=== PATIENT | male | born 2000 | race Caucasian/White ===

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

== ENCOUNTER 2024-03-24 15:46 | Emergency (ER) | payer BC, SELFPAY ==
--- OUTSIDE RECORDS SUMMARY | 2024-03-24 15:49 | XMS REPORT | Continuity of Care Document ---
Author Name Unknown Address [address] [facility] 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 Role Phone Rohini Nguyen PA-C Primary Care Physician + Rohini Nguyen PA-C Attending Clinician [phone] ROHINI NGUYEN Attending Clinician Unavailab Rohini Plasencia PA-C Attending Clinician [phone] Doctor Unassigned, [place] Attending Clinician U Alisha Lopez Attending Clinician [phone] ALISHA QUEZADA Attending Clinician Unavailable CATHI LAGUNAS Attending Clinician Eliz Rosas Attending Clinician [phone] Mendy Larry MD Attending Clinician [phone] MENDY LARRY Attending Clinician Unavail able ELENA WOOTEN Attending Clinician Unavailable Sole Yanez MD Attending Clinician + [phone] Cecelia Aquino MD Attending Clinician + [phone] Payers Payer Name Policy Type Policy Number Effective Date Expirati on Date Source [facility] [id number] 2016 00:00:00 Problems Condition Name Condition Details Condition Category Status Onset Date Resolution Date Last Treatment Date Treating Clinician Comments Source Severe obesity due to excess calories without serious comorbidit y with body mass index (BMI) greater than 99th percentile for age in pediatric patient Severe obesity due to excess calories without serious comorbidit y with body mass index (BMI) greater than 99th percentile for age in pediatric patient Disease Active 06-07 00:00: 00 [facility] Severe obesity due to excess calories without serious comorbidit y with body mass index (BMI) greater than 99th percentile for age in pediatric patient Severe obesity due to excess calories without serious comorbidit y with body mass index (BMI) greater than 99th percentile for age in pediatric patient Disease Active 06-07 00:00: 00 [facility] Allergies, Adverse Reactions, Alerts Allergy Name Allergy Type Status Severity Reaction(s) Onset Date Inactive Date Treating Clinician Comments Source Latex Propensi ty to adverse reaction s Active Rash 08-18 00:00: 00 [facility] LATEX DRUG INGREDI Active Rash 08-18 00:00: 00 [facility] Social History Social Habit Start Date Stop Date Quantity Comments Source History of tobacco use Passive smoker [facility] Gender identity [facility] Sexual orientation U [facility] Exposure to SARS-CoV-2 (event) 2022-02-22 00:00:00 2022-03-04 12:44:00 Not sure [facility] History of Social function 2020-12-15 00:00:00 2020-12-15 00:00:00 [facility] Tobacco use and exposure 2017-08-18 00:00:00 2017-08-18 00:00:00 Smokeless tobacco non-user [facility] Sex assigned at 2002 00:00:00 2002 00:00:00 [facility] Smoking Status Start Date Stop Date Source Never smoked tobacco [facility] Medications Ordered Medication Name Filled Medication Name Start Date Stop Date Current Medication? Ordering Clinician Indication Dosage Frequency Signature (SIG) Comments Components Source SERTRALINE 100 mg tablet 2023-04 0 00:00: 00 Yes [id number] TAKE ONE (1) TABLET BY MOUTH EVERY MORNING. [facility] hydrOXYzine 25 mg tablet 2022-04 0-25 00:00: 00 Yes [id number] TAKE ONE (1) TO TWO (2) TABLET(S) BY MOUTH ONCE A DAY AT BEDTIME. [facility] SERTraline 100 mg tablet 2022-04 0-25 00:00: 00 02-04 00:00 :00 No [id number] 100mg Take 1 tablet by mouth every morning. [facility] SERTRALINE 100 mg tablet 9-08 00:00: 00 02-15 00:00 :00 No [id number] 100mg TAKE ONE (1) TABLET(S) BY MOUTH EVERY MORNING. [facility] hydrOXYzine 25 mg tablet 2021-04 1- 00:00: 00 02-15 00:00 :00 No [id number] TAKE ONE (1) TO TWO (2) TABLET(S) BY MOUTH ONCE A DAY AT BEDTIME. [facility] SERTraline 100 mg tablet 2021-04 1- 00:00: 00 12-30 00:00 :00 No [id number] 100mg Take 1 tablet by mouth in the morning. [facility] SERTraline 100 mg tablet 2021-04 1- 00:00: 00 03-04 00:00 :00 No [id number] 100mg Take 1 tablet by mouth in the morning. [facility] SERTraline 100 mg tablet 9-27 00:00: 00 03-03 00:00 :00 No [id number] TAKE ONE (1) TABLET BY MOUTH DAILY. [facility] hydrOXYzine 25 mg tablet 5-02 00:00: 00 03-08 00:00 :00 No [id number] TAKE ONE (1) TO TWO (2) TABLET(S) BY MOUTH AT BEDTIME. [facility] cetirizine HCl (ZYRTEC ORAL) 2020-04 0-06 11:40: 53 01-27 00:00 :00 No Take by mouth. [facility] SERTraline 100 mg tablet 2020-04 0-06 00:00: 00 Yes [id number] 100mg Take 1 tablet by mouth daily. [facility] hydrOXYzine 25 mg tablet 2020-04 0-06 00:00: 00 08-23 00:00 :00 No [id number] Take 1 to 2 tabs po qhs [facility] SERTraline 100 mg tablet 9-08 00:00: 00 01-27 00:00 :00 No [id number] 100mg Take 1 tablet by mouth daily. [facility] omeprazole 20 mg capsule 8- 13:20: 24 Yes 20mg Take 20 mg by mouth daily. [facility] MELATONIN ORAL 8- 13:20: 24 Yes Take by mouth. [facility] MELATONIN ORAL 8 13:20: 02 Yes Take by mouth. [facility] lisinopril 10 mg tablet 7- 00:00: 00 03-04 00:00 :00 No [id number] 20mg Take 2 tablets by mouth at bedtime. [facility] albuterol 90 mcg/actuati on inhaler 3-04 00:00: 00 Yes [id number] Use 2-4 puffs q 4-6hrs prn sob, cough, wheeze [facility] fluticasone propion-hector meterol 115-21 mcg/actuati on inhaler 3-04 00:00: 00 Yes [id number] 2{puff} Inhale 2 Puffs 2 (two) times daily. [facility] fluticasone propion-hector meterol 115-21 mcg/actuati on inhaler 0 3-04 00:00: 00 Yes [id number] 2{puff} Inhale 2 Puffs 2 (two) times daily. [facility] Immunizations Ordered Immunization Name Filled Immunization Name Date Status Comments Source Meningococcal Polysaccharide (groups A, C, Y and W-135) conjugate vaccine (MCV4P) 2020-12-15 00:00:00 Completed [facility] Meningococcal Polysaccharide (groups A, C, Y and W-135) conjugate vaccine (MCV4P) 2020-12-15 00:00:00 Completed [facility] Meningococcal Polysaccharide (groups A, C, Y and W-135) conjugate vaccine (MCV4P) 2020-12-15 00:00:00 Completed [facility] Meningococcal Polysaccharide (groups A, C, Y and W-135) conjugate vaccine (MCV4P) 2020-12-15 00:00:00 Completed [facility] Meningococcal Polysaccharide (groups A, C, Y and W-135) conjugate vaccine (MCV4P) 2020-12-15 00:00:00 Completed [facility] Meningococcal Polysaccharide (groups A, C, Y and W-135) conjugate vaccine (MCV4P) 2020-12-15 00:00:00 Completed [facility] Meningococcal Polysaccharide (groups A, C, Y and W-135) conjugate vaccine (MCV4P) 2020-12-15 00:00:00 Completed [facility] Meningococcal Polysaccharide (groups A, C, Y and W-135) conjugate vaccine (MCV4P) 2020-12-15 00:00:00 Completed [facility] Meningococcal Polysaccharide (groups A, C, Y and W-135) conjugate vaccine (MCV4P) 2020-12-15 00:00:00 Completed [facility] HEPATITIS A 2014-07-21 00:00:00 Completed [facility] TDAP 2014-07-21 00:00:00 Completed [facility] HEPATITIS A 2014-07-21 00:00:00 Completed [facility] TDAP 2014-07-21 00:00:00 Completed [facility] HEPATITIS A 2014-07-21 00:00:00 Completed [facility] TDAP 2014-07-21 00:00:00 Completed [facility] HEPATITIS A 2014-07-21 00:00:00 Completed [facility] TDAP 2014-07-21 00:00:00 Completed [facility] HEPATITIS A 2014-07-21 00:00:00 Completed [facility] TDAP 2014-07-21 00:00:00 Completed [facility] HEPATITIS A 2014-07-21 00:00:00 Completed [facility] TDAP 2014-07-21 00:00:00 Completed [facility] HEPATITIS A 2014-07-21 00:00:00 Completed [facility] TDAP 2014-07-21 00:00:00 Completed [facility] HEPATITIS A 2014-07-21 00:00:00 Completed [facility] TDAP 2014-07-21 00:00:00 Completed [facility] HEPATITIS A 2014-07-21 00:00:00 Completed [facility] TDAP 2014-07-21 00:00:00 Completed [facility] HEPATITIS A 2007-01-15 00:00:00 Completed [facility] MMR 2007-01-15 00:00:00 Completed [facility] Polio (IPV/OPV) 2007-01-15 00:00:00 Completed [facility] Varicella (varivax)(chicken pox) 2007-01-15 00:00:00 Completed [facility] DTAP 2007-01-15 00:00:00 Completed [facility] HEPATITIS A 2007-01-15 00:00:00 Completed [facility] MMR 2007-01-15 00:00:00 Completed [facility] Polio (IPV/OPV) 2007-01-15 00:00:00 Completed [facility] Varicella (varivax)(chicken pox) 2007-01-15 00:00:00 Completed [facility] DTAP 2007-01-15 00:00:00 Completed [facility] HEPATITIS A 2007-01-15 00:00:00 Completed [facility] MMR 2007-01-15 00:00:00 Completed [facility] Polio (IPV/OPV) 2007-01-15 00:00:00 Completed [facility] Varicella (varivax)(chicken pox) 2007-01-15 00:00:00 Completed [facility] DTAP 2007-01-15 00:00:00 Completed [facility] HEPATITIS A 2007-01-15 00:00:00 Completed [facility] MMR 2007-01-15 00:00:00 Completed [facility] Polio (IPV/OPV) 2007-01-15 00:00:00 Completed [facility] Varicella (varivax)(chicken pox) 2007-01-15 00:00:00 Completed [facility] DTAP 2007-01-15 00:00:00 Completed [facility] HEPATITIS A 2007-01-15 00:00:00 Completed [facility] MMR 2007-01-15 00:00:00 Completed [facility] Polio (IPV/OPV) 2007-01-15 00:00:00 Completed [facility] Varicella (varivax)(chicken pox) 2007-01-15 00:00:00 Completed [facility] DTAP 2007-01-15 00:00:00 Completed [facility] HEPATITIS A 2007-01-15 00:00:00 Completed [facility] MMR 2007-01-15 00:00:00 Completed [facility] Polio (IPV/OPV) 2007-01-15 00:00:00 Completed [facility] Varicella (varivax)(chicken pox) 2007-01-15 00:00:00 Completed [facility] DTAP 2007-01-15 00:00:00 Completed [facility] HEPATITIS A 2007-01-15 00:00:00 Completed [facility] MMR 2007-01-15 00:00:00 Completed [facility] Polio (IPV/OPV) 2007-01-15 00:00:00 Completed [facility] Varicella (varivax)(chicken pox) 2007-01-15 00:00:00 Completed [facility] DTAP 2007-01-15 00:00:00 Completed [facility] HEPATITIS A 2007-01-15 00:00:00 Completed [facility] MMR 2007-01-15 00:00:00 Completed [facility] Polio (IPV/OPV) 2007-01-15 00:00:00 Completed [facility] Varicella (varivax)(chicken pox) 2007-01-15 00:00:00 Completed [facility] DTAP 2007-01-15 00:00:00 Completed [facility] HEPATITIS A 2007-01-15 00:00:00 Completed [facility] MMR 2007-01-15 00:00:00 Completed [facility] Polio (IPV/OPV) 2007-01-15 00:00:00 Completed [facility] Varicella (varivax)(chicken pox) 2007-01-15 00:00:00 Completed [facility] DTAP 2007-01-15 00:00:00 Completed [facility] DTAP 2003-08-04 00:00:00 Completed [facility] MMR 2003-08-04 00:00:00 Completed [facility] Varicella (varivax)(chicken pox) 2003-08-04 00:00:00 Completed [facility] HIB 3 Dose Schedule 2003-08-04 00:00:00 Completed [facility] DTAP 2003-08-04 00:00:00 Completed [facility] MMR 2003-08-04 00:00:00 Completed [facility] Varicella (varivax)(chicken pox) 2003-08-04 00:00:00 Completed [facility] HIB 3 Dose Schedule 2003-08-04 00:00:00 Completed [facility] DTAP 2003-08-04 00:00:00 Completed [facility] MMR 2003-08-04 00:00:00 Completed [facility] Varicella (varivax)(chicken pox) 2003-08-04 00:00:00 Completed [facility] HIB 3 Dose Schedule 2003-08-04 00:00:00 Completed [facility] DTAP 2003-08-04 00:00:00 Completed [facility] MMR 2003-08-04 00:00:00 Completed [facility] Varicella (varivax)(chicken pox) 2003-08-04 00:00:00 Completed [facility] HIB 3 Dose Schedule 2003-08-04 00:00:00 Completed [facility] DTAP 2003-08-04 00:00:00 Completed [facility] MMR 2003-08-04 00:00:00 Completed [facility] Varicella (varivax)(chicken pox) 2003-08-04 00:00:00 Completed [facility] HIB 3 Dose Schedule 2003-08-04 00:00:00 Completed [facility] DTAP 2003-08-04 00:00:00 Completed [facility] MMR 2003-08-04 00:00:00 Completed [facility] Varicella (varivax)(chicken pox) 2003-08-04 00:00:00 Completed [facility] HIB 3 Dose Schedule 2003-08-04 00:00:00 Completed [facility] DTAP 2003-08-04 00:00:00 Completed [facility] MMR 2003-08-04 00:00:00 Completed [facility] Varicella (varivax)(chicken pox) 2003-08-04 00:00:00 Completed [facility] HIB 3 Dose Schedule 2003-08-04 00:00:00 Completed [facility] DTAP 2003-08-04 00:00:00 Completed [facility] MMR 2003-08-04 00:00:00 Completed [facility] Varicella (varivax)(chicken pox) 2003-08-04 00:00:00 Completed [facility] HIB 3 Dose Schedule 2003-08-04 00:00:00 Completed [facility] DTAP 2003-08-04 00:00:00 Completed [facility] MMR 2003-08-04 00:00:00 Completed [facility] Varicella (varivax)(chicken pox) 2003-08-04 00:00:00 Completed [facility] HIB 3 Dose Schedule 2003-08-04 00:00:00 Completed Polio (IPV/OPV) 2003-05-30 00:00:00 Completed [facility] Varicella (varivax)(chicken pox) 2003-05-30 00:00:00 Completed [facility] Polio (IPV/OPV) 2003-05-30 00:00:00 Completed [facility] Varicella (varivax)(chicken pox) 2003-05-30 00:00:00 Completed [facility] Polio (IPV/OPV) 2003-05-30 00:00:00 Completed [facility] Varicella (varivax)(chicken pox) 2003-05-30 00:00:00 Completed [facility] Polio (IPV/OPV) 2003-05-30 00:00:00 Completed [facility] Varicella (varivax)(chicken pox) 2003-05-30 00:00:00 Completed [facility] Polio (IPV/OPV) 2003-05-30 00:00:00 Completed [facility] Varicella (varivax)(chicken pox) 2003-05-30 00:00:00 Completed [facility] Polio (IPV/OPV) 2003-05-30 00:00:00 Completed [facility] Varicella (varivax)(chicken pox) 2003-05-30 00:00:00 Completed [facility] Polio (IPV/OPV) 2003-05-30 00:00:00 Completed [facility] Varicella (varivax)(chicken pox) 2003-05-30 00:00:00 Completed [facility] Polio (IPV/OPV) 2003-05-30 00:00:00 Completed [facility] Varicella (varivax)(chicken pox) 2003-05-30 00:00:00 Completed [facility] Polio (IPV/OPV) 2003-05-30 00:00:00 Completed [facility] Varicella (varivax)(chicken pox) 2003-05-30 00:00:00 Completed [facility] Hep B, Adol or Pedi Dosage 2002 00:00:00 Completed [facility] Hep B, Adol or Pedi Dosage 2002 00:00:00 Completed [facility] Hep B, Adol or Pedi Dosage 2002 00:00:00 Completed [facility] Hep B, Adol or Pedi Dosage 2002 00:00:00 Completed [facility] Hep B, Adol or Pedi Dosage 2002 00:00:00 Completed [facility] Hep B, Adol or Pedi Dosage 2002 00:00:00 Completed [facility] Hep B, Adol or Pedi Dosage 2002 00:00:00 Completed [facility] Hep B, Adol or Pedi Dosage 2002 00:00:00 Completed [facility] Hep B, Adol or Pedi Dosage 2002 00:00:00 Completed [facility] HIB 3 Dose Schedule 2002 00:00:00 Completed [facility] HIB 3 Dose Schedule 2002 00:00:00 Completed [facility] HIB 3 Dose Schedule 2002 00:00:00 Completed [facility] HIB 3 Dose Schedule 2002 00:00:00 Completed [facility] HIB 3 Dose Schedule 2002 00:00:00 Completed [facility] HIB 3 Dose Schedule 2002 00:00:00 Completed [facility] HIB 3 Dose Schedule 2002 00:00:00 Completed [facility] HIB 3 Dose Schedule 2002 00:00:00 Completed [facility] HIB 3 Dose Schedule 2002 00:00:00 Completed [facility] HIB 3 Dose Schedule 2002 00:00:00 Completed [facility] Polio (IPV/OPV) 2002 00:00:00 Completed [facility] DTAP 2002 00:00:00 Completed [facility] HIB 3 Dose Schedule 2002 00:00:00 Completed [facility] Polio (IPV/OPV) 2002 00:00:00 Completed [facility] DTAP 2002 00:00:00 Completed [facility] HIB 3 Dose Schedule 2002 00:00:00 Completed [facility] Polio (IPV/OPV) 2002 00:00:00 Completed [facility] DTAP 2002 00:00:00 Completed [facility] HIB 3 Dose Schedule 2002 00:00:00 Completed [facility] Polio (IPV/OPV) 2002 00:00:00 Completed [facility] DTAP 2002 00:00:00 Completed [facility] HIB 3 Dose Schedule 2002 00:00:00 Completed [facility] Polio (IPV/OPV) 2002 00:00:00 Completed [facility] DTAP 2002 00:00:00 Completed [facility] HIB 3 Dose Schedule 2002 00:00:00 Completed [facility] Polio (IPV/OPV) 2002 00:00:00 Completed [facility] DTAP 2002 00:00:00 Completed [facility] HIB 3 Dose Schedule 2002 00:00:00 Completed [facility] Polio (IPV/OPV) 2002 00:00:00 Completed [facility] DTAP 2002 00:00:00 Completed [facility] HIB 3 Dose Schedule 2002 00:00:00 Completed [facility] Polio (IPV/OPV) 2002 00:00:00 Completed [facility] DTAP 2002 00:00:00 Completed [facility] HIB 3 Dose Schedule 2002 00:00:00 Completed [facility] Polio (IPV/OPV) 2002 00:00:00 Completed [facility] DTAP 2002 00:00:00 Completed [facility] HIB 3 Dose Schedule 2002 00:00:00 Completed [facility] Hep B, Adol or Pedi Dosage 2002 00:00:00 Completed [facility] Polio (IPV/OPV) 2002 00:00:00 Completed [facility] DTAP 2002 00:00:00 Completed [facility] HIB 3 Dose Schedule 2002 00:00:00 Completed [facility] Hep B, Adol or Pedi Dosage 2002 00:00:00 Completed [facility] Polio (IPV/OPV) 2002 00:00:00 Completed [facility] DTAP 2002 00:00:00 Completed [facility] HIB 3 Dose Schedule 2002 00:00:00 Completed [facility] Hep B, Adol or Pedi Dosage 2002 00:00:00 Completed [facility] Polio (IPV/OPV) 2002 00:00:00 Completed [facility] DTAP 2002 00:00:00 Completed [facility] HIB 3 Dose Schedule 2002 00:00:00 Completed [facility] Hep B, Adol or Pedi Dosage 2002 00:00:00 Completed [facility] Polio (IPV/OPV) 2002 00:00:00 Completed [facility] DTAP 2002 00:00:00 Completed [facility] HIB 3 Dose Schedule 2002 00:00:00 Completed [facility] Hep B, Adol or Pedi Dosage 2002 00:00:00 Completed [facility] Polio (IPV/OPV) 2002 00:00:00 Completed [facility] DTAP 2002 00:00:00 Completed [facility] HIB 3 Dose Schedule 2002 00:00:00 Completed [facility] Hep B, Adol or Pedi Dosage 2002 00:00:00 Completed [facility] Polio (IPV/OPV) 2002 00:00:00 Completed [facility] DTAP 2002 00:00:00 Completed [facility] HIB 3 Dose Schedule 2002 00:00:00 Completed [facility] Hep B, Adol or Pedi Dosage 2002 00:00:00 Completed [facility] Polio (IPV/OPV) 2002 00:00:00 Completed [facility] DTAP 2002 00:00:00 Completed [facility] HIB 3 Dose Schedule 2002 00:00:00 Completed [facility] Hep B, Adol or Pedi Dosage 2002 00:00:00 Completed [facility] Polio (IPV/OPV) 2002 00:00:00 Completed [facility] DTAP 2002 00:00:00 Completed [facility] HIB 3 Dose Schedule 2002 00:00:00 Completed [facility] Hep B, Adol or Pedi Dosage 2002 00:00:00 Completed [facility] Polio (IPV/OPV) 2002 00:00:00 Completed [facility] DTAP 2002 00:00:00 Completed [facility] DTAP 2002 00:00:00 Completed [facility] DTAP 2002 00:00:00 Completed [facility] DTAP 2002 00:00:00 Completed [facility] DTAP 2002 00:00:00 Completed [facility] DTAP 2002 00:00:00 Completed [facility] DTAP 2002 00:00:00 Completed [facility] DTAP 2002 00:00:00 Completed [facility] DTAP 2002 00:00:00 Completed [facility] DTAP 2002 00:00:00 Completed [facility] Hep B, Adol or Pedi Dosage 2002 00:00:00 Completed [facility] Hep B, Adol or Pedi Dosage 2002 00:00:00 Completed [facility] Hep B, Adol or Pedi Dosage 2002 00:00:00 Completed [facility] Hep B, Adol or Pedi Dosage 2002 00:00:00 Completed [facility] Hep B, Adol or Pedi Dosage 2002 00:00:00 Completed [facility] Hep B, Adol or Pedi Dosage 2002 00:00:00 Completed [facility] Hep B, Adol or Pedi Dosage 2002 00:00:00 Completed [facility] Hep B, Adol or Pedi Dosage 2002 00:00:00 Completed [facility] Hep B, Adol or Pedi Dosage 2002 00:00:00 Completed DTAP Unknown Completed [facility] HIB 3 Dose Schedule Unknown Completed [facility] Hep B, Adol or Pedi Dosage Unknown Completed [facility] MMR Unknown Completed [facility] Varicella (varivax)(chicken pox) Unknown Completed [facility] HEPATITIS A Unknown Completed [facility] Polio (IPV/OPV) Unknown Completed [facility] TDAP Unknown Completed [facility] Meningococcal Polysaccharide (groups A, C, Y and W-135) conjugate vaccine (MCV4P) Unknown Completed [facility] DTAP Unknown Completed [facility] HIB 3 Dose Schedule Unknown Completed [facility] Hep B, Adol or Pedi Dosage Unknown Completed [facility] MMR Unknown Completed [facility] Varicella (varivax)(chicken pox) Unknown Completed [facility] HEPATITIS A Unknown Completed [facility] Polio (IPV/OPV) Unknown Completed [facility] TDAP Unknown Completed [facility] Meningococcal Polysaccharide (groups A, C, Y and W-135) conjugate vaccine (MCV4P) Unknown Completed [facility] DTAP Unknown Completed [facility] HIB 3 Dose Schedule Unknown Completed [facility] Hep B, Adol or Pedi Dosage Unknown Completed [facility] MMR Unknown Completed [facility] Varicella (varivax)(chicken pox) Unknown Completed [facility] HEPATITIS A Unknown Completed [facility] Polio (IPV/OPV) Unknown Completed [facility] TDAP Unknown Completed [facility] Meningococcal Polysaccharide (groups A, C, Y and W-135) conjugate vaccine (MCV4P) Unknown Completed [facility] DTAP Unknown Completed [facility] HIB 3 Dose Schedule Unknown Completed [facility] Hep B, Adol or Pedi Dosage Unknown Completed [facility] MMR Unknown Completed [facility] Varicella (varivax)(chicken pox) Unknown Completed [facility] HEPATITIS A Unknown Completed [facility] Polio (IPV/OPV) Unknown Completed [facility] TDAP Unknown Completed [facility] Meningococcal Polysaccharide (groups A, C, Y and W-135) conjugate vaccine (MCV4P) Unknown Completed [facility] Vital Signs Vital Name Observation Time Observation Value Comments S ource Systolic blood pressure 2023-02-15 18:36:00 143 mm[Hg] [facility] Diastolic blood pressure 2023-02-15 18:36:00 94 mm[Hg] [facility] Heart rate 2023-02-15 18:36:00 85 /min [facility] Respiratory rate 2023-02-15 18:36:00 15 /min [facility] Body weight 2023-02-15 18:36:00 151.643 kg [facility] Systolic blood pressure 2022-03-04 19:01:00 128 mm[Hg] [facility] Diastolic blood pressure 2022-03-04 19:01:00 76 mm[Hg] [facility] Heart rate 2022-03-04 19:01:00 94 /min Un[facility] Respiratory rate 2022-03-04 19:01:00 16 /min [facility] Body height 2022-03-04 19:01:00 179.5 cm [facility] Body weight 2022-03-04 19:01:00 148.734 kg [facility] BMI 2022-03-04 19:01:00 46.16 kg/m2 [facility] Oxygen saturation in Arterial blood by Pulse oximetry 2022-03-04 19:01:00 96 /min [facility] Systolic blood pressure 2021-01-27 16:08:00 114 mm[Hg] [facility] Diastolic blood pressure 2021-01-27 16:08:00 76 mm[Hg] [facility] Heart rate 2021-01-27 16:08:00 85 /min Unive [facility] Body temperature 2021-01-27 16:08:00 36.5 Radha [facility] Respiratory rate 2021-01-27 16:08:00 16 /min [facility] Body weight 2021-01-27 16:08:00 161.14 kg [facility] Oxygen saturation in Arterial blood by Pulse oximetry 2021-01-27 16:08:00 96 /min [facility] Procedures Procedure Date / Time Performed Performing Clinicia n Source [facility] PATIENT FINANCIAL POLICY 2023-02-15 18:28:36 Doctor Unassigned, [place] [facility] CONSENT/REFUSAL FOR DIAGNOSIS AND TREATMENT 2022-03-04 18:46:40 Doctor Unassigned, [place] [facility] Encounters Start Date/Time End Date/Time Encounter Type Admission Type Attending Clinicians Care Facility Care Department Encounter ID Source 2021-02-19 05:02:35 Emergency [facility] [id number] [facility] 2024-03-08 00:00:00 2024-03-08 11:16:23 Rohini Wilson [facility] 1.2840.114 350.1.13.10 4.2.7.2.686 [id number] 225 [id number] [facility] 2024-02-19 15:50:00 2024-02-19 15:50:00 Outpatient ROHINI ARTHUR [facility] [id number] [facility] 2024-02-05 00:00:00 2024-02-05 10:02:10 RefRohini Musa [facility] 1.2.840.114 350.1.13.10 4.2.7.2.686 [id number] 225 [id number] [facility] 2023-08-18 09:30:00 2023-08-18 09:30:00 Outpatient ROHINI ARTHUR [facility] [id number] [facility] 2023-02-15 13:30:00 2023-02-15 14:10:00 Office Visit Rohini Nguyen [facility] 1.2840.114 350.1.13.10 4.2.7.2.686 [id number] 225 [id number] [facility] 2023-02-15 13:30:00 2023-02-15 14:10:00 Outpatient ROHINI ARTHUR [facility] [id number] [facility] 2023-02-15 00:00:00 2023-02-15 00:00:00 Orders Only Doctor Unassigned, [place] [facility] 1.2840.114 350.1.13.10 4.2.7.2.686 [id number] [id number] [facility] 2023-02-13 00:00:00 2023-02-13 00:00:00 Rohini Wilson [facility] 1.2840.114 350.1.13.10 4.2.7.2.686 [id number] [facility] 2023-01-30 00:00:00 2023-01-30 00:00:00 Rohini Wilson [facility] 1.0.114 350.1.13.10 4.2.7.2.686 [id number] [facility] 2022-12-29 00:00:00 2022-12-29 00:00:00 Rohini Wilson [facility] 1.0.114 350.1.13.10 4.2.7.2.686 [id number] [facility] 2022-09-02 13:50:00 2022-09-02 13:50:00 Outpatient ROHINI ARTHUR [facility] [id number] [facility] 2022-03-08 00:00:00 2022-03-08 00:00:00 Rohini Wilson [facility] 1.0.114 350.1.13.10 4.2.7.2.686 [id number] 225 [id number] [facility] 2022-03-04 12:50:00 2022-03-04 13:46:16 Outpatient ROHINI ARTHUR [facility] [id number] [facility] 2022-03-04 12:50:00 2022-03-04 13:46:16 Office Visit Rohini Nguyen [facility] 1..114 350.1.13.10 4.2.7.2.686 [id number] [facility] 2022-03-04 00:00:00 2022-03-04 00:00:00 Orders Only Doctor Unassigned, [place] [facility] 1.2840.114 350.1.13.10 4.2.7.2.686 [id number] [id number] [facility] 2022-03-02 00:00:2022-03-02 00:00:00 Refill Rohini Nguyen [facility] 1.2.840.114 350.1.13.10 4.2.7.2.686 [id number] 225 [id number] [facility] 2022-02-24 00:00:00 2022-02-24 00:00:00 Refill Rohini Nguyen [facility] 1.2.840.114 350.1.13.10 4.2.7.2.686 [id number] [facility] 2021-08-23 00:00:00 2021-08-23 00:00:00 Rohini Wilson [facility] 1.2.840.114 350.1.13.10 4.2.7.2.686 [id number] [facility] 2021-01-27 11:00:56 2021-01-27 11:45:19 Office Visit Rohini Nguyen [facility] 1.2.840.114 350.1.13.10 4.2.7.2.686 [id number] [facility] 2021-01-27 11:10:00 2021-01-27 11:10:00 Outpatient R ROHINI NGUYEN [facility] [id number] [facility] 2021-01-26 00:00:00 2021-01-26 00:00:00 RefRohini Musa [facility] 1.2.840.114 350.1.13.10 4.2.7.2.686 [id number] 225 [id number] [facility] 2021-01-19 13:50:00 2021-01-19 13:50:00 Outpatient R ROHINI NGUYEN [facility] [id number] [facility] 2020-12-29 00:00:00 2020-12-29 00:00:00 Rohini Wilson [facility] 1.2.114 350.1.13.10 4.2.7.2.686 [id number] 225 [id number] [facility] 2020-12-29 00:00:00 2020-12-29 00:00:00 Rohini Wilson [facility] 1.20.114 350.1.13.10 4.2.7.2.686 [id number] 225 [id number] [facility] 2020-12-15 13:06:50 2020-12-15 14:29:14 Office Visit Alisha Quezada [facility] Tomas?[facility] 1.2840.114 350.1.13.10 4.2.7.2.686 [id number] [facility] 2020-12-15 13:00:00 2020-12-15 13:00:00 Outpatient R ALISHA QUEZADA [facility] [id number] [facility] 2020-12-15 00:00:00 2020-12-15 00:00:00 Orders Only Doctor Unassigned, [place] [facility] 1.2840.114 350.1.13.10 4.2.7.2.686 [id number] [id number] [facility] 2020-12-15 00:00:00 2020-12-15 00:00:00 Orders Only Doctor Unassigned, [place] [facility] 1.2840.114 350.1.13.10 4.2.7.2.686 [id number] [facility] 2020-12-07 08:50:00 2020-12-07 08:50:00 Outpatient R ROHINI NGUYEN [facility] [id number] [facility] 2020-06-30 12:42:48 2020-06-30 13:02:48 Telemedici ne Visit Rohini Nguyen [facility] 1.2.840.114 350.1.13.10 4.2.7.2.686 [id number] [facility] 2020-06-30 12:30:00 2020-06-30 12:30:00 Outpatient ROHINI ARTHUR [facility] [id number] [facility] 2020-06-24 00:00:00 2020-06-24 00:00:00 Refill Rohini Nguyen [facility] 1.2.840.114 350.1.13.10 4.2.7.2.686 [id number] [facility] 2020-05-01 00:00:00 2020-05-01 00:00:00 Telephone Rohini Nguyen [facility] 1.2.840.114 350.1.13.10 4.2.7.2.686 [id number] 225 [id number] [facility] 2020 00:00:00 2020 00:00:00 Rohini Wilson [facility] 1.2.840.114 350.1.13.10 4.2.7.2.686 [id number] 225 [id number] [facility] 2020-02-20 00:00:00 2020-02-20 00:00:00 RefRohini Musa [facility] 1.2.840.114 350.1.13.10 4.2.7.2.686 [id number] [facility] 2020-01-03 15:30:00 2020-01-03 15:30:00 Outpatient ROHINI ARTHUR [facility] [id number] [facility] 2020-01-03 00:00:00 2020-01-03 00:00:00 Telephone Rohini Nguyen [facility] 1.2.840.114 350.1.13.10 4.2.7.2.686 [id number] [facility] 2019-12-27 00:00:00 2019-12-27 00:00:00 Ritu Rohini Nguyen [facility] 1.2.840.114 350.1.13.10 4.2.7.2.686 [id number] [facility] 2019-11-22 00:00:00 2019-11-22 00:00:00 Orders Only Doctor Unassigned, [place] [facility] 1.2.840.114 350.1.13.10 4.2.7.2.686 [id number] [facility] 2019-11-04 11:00:00 2019-11-04 11:00:00 Outpatient CATHI MONTANO [facility] [id number] [facility] 2019-10-28 16:23:58 2019-10-28 19:00:00 Emergency Eliz Baht [facility] 1.2.840.114 350.1.13.10 4.2.7.2.686 [id number] [facility] 2019-10-28 14:16:21 2019-10-28 15:14:20 Office Visit Mendy Larry [facility] 1.2.840.114 350.1.13.10 4.2.7.2.686 [id number] [facility] 2019-10-28 14:20:00 2019-10-28 14:20:00 Outpatient MENDY MORSE [facility] [id number] [facility] 2019-10-28 00:00:00 2019-10-28 00:00:00 Orders Only Doctor Unassigned, [place] [facility] 1.2.840.114 350.1.13.10 4.2.7.2.686 [id number] [facility] 2019-09-29 00:00:00 2019-09-29 00:00:00 Refill Rohini Nguyen [facility] 1.2.840.114 350.1.13.10 4.2.7.2.686 [id number] [facility] 2019-09-23 15:50:00 2019-09-23 15:50:00 Outpatient R ROHINI NGUYEN [facility] [id number] [facility] 2019-09-20 14:40:00 2019-09-20 14:40:00 Outpatient R ELENA WOOTEN [facility] [id number] [facility] 2019-09-20 00:00:00 2019-09-20 00:00:00 Telephone Rohini Nguyen [facility] 1.2.840.114 350.1.13.10 4.2.7.2.686 [id number] [facility] 2019-09-17 00:00:00 2019-09-17 00:00:00 Telephone Rohini Nguyen [facility] 1.2.840.114 350.1.13.10 4.2.7.2.686 [id number] [facility] 2019-09-17 00:00:00 2019-09-17 00:00:00 Telephone Rohini Nguyen [facility] 1.2.840.114 350.1.13.10 4.2.7.2.686 [id number] [facility] 2019-06-26 13:37:33 2019-06-26 14:17:11 Office Visit Rohini Nguyen [facility] 1.2.840.114 350.1.13.10 4.2.7.2.686 [id number] [facility] 2019-06-26 13:30:00 2019-06-26 13:30:00 Outpatient R ROHINI NGUYEN [facility] [id number] [facility] 2019-06-26 00:00:00 2019-06-26 00:00:00 Letter (Out) Rohini Nguyen [facility] 1.2.840.114 350.1.13.10 4.2.7.2.686 [id number] [facility] 2019-06-06 07:44:23 2019-06-06 09:09:08 [facility] 1.2.840.114 350.1.13.10 4.2.7.2.686 [id number] [facility] 2019-05-22 07:38:27 2019-05-22 09:06:57 Office Visit Rohini Nguyen [facility] 1.2.840.114 350.1.13.10 4.2.7.2.686 [id number] [facility] 2019-05-22 00:00:00 2019-05-22 00:00:00 Orders Only Doctor Unassigned, [place] [facility] 1.2.840.114 350.1.13.10 4.2.7.2.686 [id number] [facility] 2019-05-22 00:00:00 2019-05-22 00:00:00 Letter (Out) Rohini Nguyen [facility] 1.2.840.114 350.1.13.10 4.2.7.2.686 [id number] [facility] 2018-12-31 15:27:12 2018-12-31 16:18:55 Office Visit Cecelia Johnson [facility] 1.2.840.114 350.1.13.10 4.2.7.2.686 [id number] [facility] 2018-12-28 00:00:00 2018-12-28 00:00:00 Telephone Rohini Nguyen [facility] 1.2.840.114 350.1.13.10 4.2.7.2.686 [id number] [facility] 2018-12-19 14:19:37 2018-12-19 15:48:41 Office Visit Rohini Nguyen [facility] 1.2.840.114 350.1.13.10 4.2.7.2.686 [id number] [facility] 2018-12-19 00:00:00 2018-12-19 00:00:00 Letter (Out) Rohini Nguyen [facility] 1.2.840.114 350.1.13.10 4.2.7.2.686 [id number] 225 [id number] [facility] 2018-12-17 00:00:00 2018-12-17 00:00:00 Telephone Rohini Nguyen [facility] 1.2.840.114 350.1.13.10 4.2.7.2.686 [id number] [facility] 2018-11-20 10:20:00 2018-11-20 10:55:11 Office Visit Rohini Nguyen [facility] 1.2.840.114 350.1.13.10 4.2.7.2.686 [id number] 225 [id number] [facility] 2018-11-20 00:00:00 2018-11-20 00:00:00 Orders Only Doctor Unassigned, [place] [facility] 1.2.840.114 350.1.13.10 4.2.7.2.686 [id number] [facility] 2018-11-10 00:00:00 2018-11-10 00:00:00 Refill Rohini Nguyen [facility] 1.2.840.114 350.1.13.10 4.2.7.2.686 [id number] 225 [id number] [facility] Notes Date/Time Note Provider Source 2024-03-08 11:15:54 Attempted to call patient, left VM patient needs appt for refill. [facility] Sarai Villegas MA [facility] 2024-03-08 10:52:11 Call pt, Needs appt. Can be nurse visit with provider ( only Rohini Adan) check in on that day if unable to afford visit. Please advise if Seema has concerns./acp [facility] 2024-03-08 09:34:59 NELLIE 02/15/2023 L[facility] 02/05/2024 Appt due 08/17/2023 [facility] 2024-02-05 10:01:53 LVM for MOC that appt will be needed for any further refills. Callback number provided. Caprice aHrt RN [facility] 2024-02-05 09:48:25 Call pt/moc 1 month supply sent to pharmacy. Needs appt for subsequent fills. [facility] 2024-02-05 08:44:23 Images from the original note were not included. Name from pharmacy: Sertraline 100mg Tablet Will file in chart as: SERTRALINE 100 mg tablet Sig: TAKE ONE (1) TABLET BY MOUTH EVERY MORNING. Disp: 90 tablet (Pharmacy requested: 90 Each) Refills: 3 (Pharmacy requested: Not specified) Start: 02/05/2024 Class: eRX For: Current mild episode of major depressive disorder without prior episode Last ordered: 11 months ago (02/15/2023) by Rohini Nguyen PA-C Last refill: 11/09/2023 Rx #: [id number] Psychiatry: Antidepressants [id number]/05/2024 05:51 AM Protocol Details Valid encounter within last 6 months Manual Review: Staff with the department of Endocrinology - Forward to provider for authorization Manual Review: Verify no changes in dose in the last 3 months To be filled at: [address] AT [place] [address] 02/15/2023 Sarai Villegas MA [facility] 2022-12-30 08:51:07 Formatting of this n ote might be different from the original. Left message for MOC to confirm if pt still taking and explained needing to taking medication continuously and not stopping abruptly. Caprice Hart RN [facility] 2022-12-30 08:45:44 Formatting of this n ote might be different from the original. Please call moc and clarify that this refill is needed. He is due for a medication recheck. 30 days given but if he is still taking this medication then he will need an appt for additional refills.//acp [facility] 2022-12-29 09:36:57 Formatting of this n ote is different from the original. Images from the original note were not included. Name from pharmacy: Sertraline 100mg Tablet Will file in chart as: SERTRALINE 100 mg tablet Sig: TAKE ONE (1) TABLET(S) BY MOUTH EVERY MORNING. Disp: 90 tablet (Pharmacy requested: 90 Each) Refills: 2 (Pharmacy requested: Not specified) Start: 12/29/2022 Class: eRX For: Current mild episode of major depressive disorder without prior episode To pharmacy: Sending [facility] refill request Last ordered: 10 months ago (03/04/2022) by Rohini Nguyen PA-C Last refill: 09/29/2022 Rx #: [id number] Psychiatry: Antidepressants Failed 12/29/2022 05:54 AM Protocol Details Valid encounter within last 6 months Manual Review: Staff with the department of Endocrinology - Forward to provider for authorization Manual Review: Verify no changes in dose in the last 3 months To be filled at: [facility] [place] [facility] [place], [place] - [address] AT [place] [address] [facility]-- 03.04.22 Last filled-- 03.04.22 T [facility]
[2024-03-24 16:49] LABS: Absolute Basophils 0.1 K/uL (0-0.5); Absolute Lymphocytes (CBC) 0.4 K/uL (0.7-4.9); Absolute Monocytes 1.3 K/uL (0.1-1.3); Absolute Neutrophil 23.3 K/uL (1.8-8.0); Basophils % 0.3 % (0-1.3); Eosinophils % 0.1 % (0-4.4); Hematocrit 45.3 % (39.6-49.0); Hemoglobin 15.4 g/dL (13.6-17.9); Lymphocytes % 1.5 % (15.3-44.8); MCH 30.3 pg (27.0-35.0); MCHC 33.9 g/dL (32.0-36.0); MCV 89.4 fL (80-100); MPV 8.4 fL (7.6-11.3); Monocytes % 5.3 % (3.3-12.3); Neutrophils % 92.8 % (41.7-73.7); Platelets 380 thou/uL (152-406); RBC Red Blood Cell Count 5.07 M/uL (4.33-5.43); Red Cell Distribution Width 12.9 % (12.1-15.2)
[2024-03-24 17:03] LABS: Band Neutrophils 1 % (0-1); Differential Total Cells Count 100; Lymphocytes 2 % (15-42); Monocytes 8 % (0-10); Segmented Neutrophils 88 % (40-80)
--- NOTE | 2024-03-24 17:03 | RAD REPORT ---
EXAMINATION: ONE VIEW CHEST XR CLINICAL INDICATION: syncope TECHNIQUE: Frontal chest projection is submitted. Examination is limited by patient positioning and t echnique. COMPARISON: No prior exam. FINDINGS: The lungs are well inflated and clear. The heart is normal in size. No displaced fractures identified . IMPRESSION: No acute intrathoracic abnormalities.
[2024-03-24 17:04] LABS: Blood Morphology Comment NOT SEEN (NOT SEEN); Eosinophils 1 % (0-3); Platelet Estimate ADEQ
[2024-03-24 17:25] LABS: Albumin/Globulin Ratio 1.1 (1.1-1.8); Anion Gap 9.5 mEq/L (5.0-15.0); Bilirubin Direct 0.2 mg/dL (0-0.2); Bilirubin Indirect, Calculated 0.7 mg/dL (0.2-0.8); Bilirubin Total 0.9 mg/dL (0.2-1.0); Globulin 3.5 g/dL (2.3-3.5); Magnesium 1.6 mg/dL (1.6-2.4); Potassium 3.5 mEq/L (3.5-5.1); Protein, Total 7.5 g/dL (6.4-8.2); Troponin High Sensitivity 15.1 pg/mL (<58.9)
[2024-03-24] MEDS ORDERED: NA CHLORIDE 0.9% 1,000 ML ONE ×2 (17:31→18:32)
[2024-03-24] MEDS ORDERED: FAMOTIDINE 20 MG/2 ML VIAL IV ONE (17:31)
[2024-03-24] MEDS ORDERED: ONDANSETRON 4 MG/2 ML VIAL ONE (17:31)
--- NOTE | 2024-03-24 18:24 | RAD REPORT ---
EXAMINATION: CT ABDOMEN AND PELVIS WITH CONTRAST CLINICAL INDICATION: diarrhea, vomiting TECHNIQUE: CT abdomen and pelvis was performed, after the administration of IV contrast, as per [facility] protocol. Axial, sagittal and coronal reconstructions were obtained. One or more of the following dose reduction techniques were used: Automated exposure control, adjustment of the mA and k V according to patient size, and iterative reconstruction. Unless otherwise specified, incidental findings do not require dedicated imaging follow-up. COMPARISON: No prior exam. FINDINGS: LOWER CHEST: The visualized lung bases are clear. LIVER: Mild fatty liver is present. No focal lesion or biliary dilatation is seen. Grossly unremark able gallbladder. SPLEEN: Normal size. No focal lesion. PANCREAS: No mass, ductal dilation, or sim-pancreatic fluid. ADRENALS: Normal; no mass. KIDNEYS: Normal size and contour. No hydronephrosis. GASTROINTESTINAL TRACT: No evidence of free air, significant intra-abdominal free fluid, bowel obstru ction or abscess. APPENDIX: Normal appendix. LYMPH NODES: No lymphadenopathy. MUSCULOSKELETAL: No acute or suspicious osseous abnormality. ADDITIONAL FINDINGS: None. IMPRESSION: No acute or concerning abnormalities seen in the abdomen or pelvis.
[2024-03-24] MEDS ORDERED: LOPERAMIDE HCL 2 MG CAPSULE ONE (18:31)
--- NOTE | 2024-03-24 20:13 | EDPHYS ---
Physician Documentation [facility] Name: Víctor Coffey Age: 24 yrs Sex: Male : 2000 Arrival Date: 03/24/2024 Time: 15:46 Bed 16 Private MD: ED Physician Rodri Peace HPI: 03/24 16:15 This 24 yrs old Male presents to ER via Ambulatory with complaints of Abdominal Pain, cp Nausea/Vomiting/Diarrhea, Syncope. 16:15 The patient presents with abdominal pain. Onset: The symptoms/episode began/occurred cp today. 16:15 Associated signs and symptoms: Pertinent positives: nausea and vomiting, diarrhea, cp Pertinent negatives: blood in stools, fever, testicular pain, vomiting blood. 16:15 Patient reports syncopal episode after vomiting and having diarrhea while in shower cp today. denies chest pain. Historical: - Allergies: 16:05 Latex, Natural Rubber; jl7 16:05 peanuts; jl7 - PMHx: 16:05 Depression; hypertension (Depression); jl7 - PSHx: 16:05 Tonsillectomy; jl7 - Immunization history:: Client reports having NOT received the Covid vaccine. - Infectious Disease History:: Denies. - Social history:: Smoking status: Patient denies any tobacco usage or history of. ROS: 16:20 Constitutional: Negative for body aches, chills, fever, poor PO intake, cp 16:20 Respiratory: Negative for cough, shortness of breath, wheezing, cp 16:20 Eyes: Negative for injury, pain, redness, and discharge, cp 16:20 ENT: Negative for drainage from ear(s), ear pain, sore throat, difficulty swallowing, difficulty handling secretions, 16:20 Cardiovascular: Negative for chest pain, palpitations, 16:20 Abdomen/GI: Positive for abdominal pain, nausea and vomiting, diarrhea, Negative for constipation, hematemesis, black/tarry stool, rectal bleeding, 16:20 Neuro: Positive for syncope, Negative for altered mental status, weakness, 16:20 All other systems are negative, Exam: 16:25 Constitutional: The patient appears in no acute distress, alert, awake, non-toxic, well cp developed, well nourished, obese, 16:25 Head/Face: Normocephalic, atraumatic. cp 16:25 Eyes: Periorbital structures: appear normal, Pupils: equal, round, and reactive to light and accomodation, Extraocular movements: intact throughout, Conjunctiva: normal, no exudate, no injection, Sclera: no appreciated abnormality, Lids and lashes: appear normal, bilaterally, 16:25 ENT: External ear(s): are unremarkable, Nose: is normal, Mouth: Lips: moist, Oral mucosa: pink and intact, moist, Posterior pharynx: Airway: no evidence of obstruction, patent, 16:25 Neck: ROM/movement: is normal, is supple, without pain, no range of motions limitations, 16:25 Chest/axilla: Inspection: normal, 16:25 Cardiovascular: Rate: tachycardic, 16:25 Respiratory: the patient does not display signs of respiratory distress, Respirations: normal, no use of accessory muscles, no retractions, labored breathing, is not present, Breath sounds: are clear throughout, no decreased breath sounds, no stridor, no wheezing, 16:25 Abdomen/GI: Inspection: obese Bowel sounds: active, all quadrants, Palpation: soft, in all quadrants, mild abdominal tenderness, in all quadrants, rebound tenderness, is not appreciated, 16:25 Neuro: Orientation: to person, place \T\ time. Mentation: is normal, Motor: moves all fours, strength is normal, 16:28 ECG was reviewed by the Attending Physician. Vital Signs: 16:03 BP 133 / 85; Pulse 126; Resp 18; Temp 98.9(O); Pulse Ox 99% on R/A; Weight 154.22 kg; 7 Height 5 ft. 11 in. ; Pain 2/10; 17:45 BP 144 / 80; Pulse 118; Resp 19; Pulse Ox 100% ; ko1 19:00 BP 142 / 80; Pulse 98; Resp 18; Temp 98; Pulse Ox 100% ; kj2 20:16 BP 138 / 78; Pulse 90; Resp 18; Temp 98; Pulse Ox 100% ; kj2 16:03 Body Mass Index 47.42 (154.22 kg, 180.34 cm) [facility] 16:03 Pain Scale: Adult [facility] MDM: 16:02 Medical Screening Exam initiated cp 17:00 Differential diagnosis: appendicitis, cholecystitis, Cholelithiasis, gastritis, cp non-specific abd pain, pancreatitis, Pyelonephritis, Testicular Torsion, urinary tract infection. 20:11 Data reviewed: vital signs, nurses notes, lab test result(s), radiologic studies, CT cp scan, plain films, and as a result, I will discharge patient. 20:11 I considered the following discharge prescriptions or medication management in the emergency department Medications were administered in the Emergency Department. See MAR. Counseling: I had a detailed discussion with the patient and/or guardian regarding the historical points, exam findings, and any diagnostic results supporting the discharge/admit diagnosis, lab results, radiology results, to return to the emergency department if symptoms worsen or persist or if there are any questions or concerns that arise at home. Response to treatment: the patient's symptoms have markedly improved after treatment, and as a result, I will discharge patient. Special discussion: Based on the patient's Hx, exam, and Dx evaluation, there is no indication for emergent surgery or inpatient Tx. It is understood by the patient/guardian that if the Sx's persist or worsen they need to return immediately for re-evaluation. 03/24 16:09 Order name: Basic Metabolic Panel; Complete Time: 18:27 03/24 18:27 Interpretation: Normal except: CL 109; GLUC 121; BUN 20. 03/24 16:09 Order name: CBC with Diff; Complete Time: 17:15 03/24 18:46 Interpretation: Normal except: WBC 25.10; HALLE% 92.8; LYM% 1.5; NEUT A 23.3; LYMA 0.4; cp Reviewed. 03/24 16:09 Order name: LFT's; Complete Time: 18:27 03/24 16:09 Order name: Magnesium; Complete Time: 18:27 03/24 16:09 Order name: Troponin HS; Complete Time: 18:27 03/24 16:09 Order name: Lipase; Complete Time: 18:27 03/24 16:51 Order name: Manual Differential; Complete Time: 17:15 EDMS 03/24 18:46 Interpretation: Normal except: SEGS 88; LYM 2. 03/24 16:09 Order name: XRAY Chest (1 view); Complete Time: 17:15 03/24 17:15 Interpretation: Report review. 03/24 17:16 Order name: CT Abd/Pelvis - IV Contrast Only; Complete Time: 18:27 03/24 18:28 Interpretation: Report reviewed. 03/24 16:09 Order name: EKG; Complete Time: 16:10 03/24 16:09 Order name: Cardiac monitoring; Complete Time: 16:12 03/24 16:09 Order name: EKG - Nurse/Tech; Complete Time: 16:26 03/24 16:09 Order name: IV Saline Lock; Complete Time: 16:33 cp 03/24 16:09 Order name: Labs collected and sent; Complete Time: 16:33 cp 03/24 16:09 Order name: O2 Per Protocol; Complete Time: 16:13 03/24 16:09 Order name: O2 Sat Monitoring; Complete Time: 16:13 03/24 18:28 Order name: PO challenge; Complete Time: 18:33 cp EC:28 Rate is 121 beats/min. Rhythm is regular. SC interval is normal. QRS interval is cp normal. QT interval is normal. T waves are Inverted in lead aVR. Interpreted by me. Reviewed by me. Administered Medications: 17:39 Drug: Ondansetron IVP 4 mg IVP once; over 2 minutes Route: IVP; Site: left antecubital; ko1 17:54 Follow up: Response: No adverse reaction ko1 17:39 Drug: Famotidine IVP 20 mg IVP once; dilute with 10 mL 0.9% NaCl; give over 2 minutes ko1 Route: IVP; Site: left antecubital; 17:54 Follow up: Response: No adverse reaction ko1 17:39 Drug: NS 0.9% IV 1000 ml IV at 1 bolus Per protocol; to be given as a bolus over 60 ko1 minutes Route: IV; Rate: 1 bolus; Site: left antecubital; 18:32 Follow up: Response: No adverse reaction; IV Status: Completed infusion; IV Intake: ko1 1000ml 18:33 Drug: NS 0.9% IV 1000 ml IV at 1000 ml once; to be given as a bolus over 60 minutes ko1 Route: IV; Rate: 1000 ml; Site: left antecubital; 20:18 Follow up: IV Status: Completed infusion; IV Intake: 1000ml kj2 18:33 Drug: Loperamide PO 4 mg PO once Route: PO; ko1 19:03 Follow up: Response: No adverse reaction ko1 Disposition Summary: 12/01/24 20:12 Discharge Ordered Notes: Location: Home cp Problem: new cp Symptoms: have improved cp Condition: Stable cp Diagnosis - Nausea with vomiting, unspecified cp - Diarrhea, unspecified cp - Syncope cp Followup: cp - With: Private Physician - When: 2 - 3 days - Reason: Worsening of condition Discharge Instructions: - Discharge Summary Sheet cp - Food Choices to Help Relieve Diarrhea, Adult cp - Diarrhea, Adult cp - Nausea and Vomiting, Adult cp - Syncope cp Forms: - Medication Reconciliation Form cp - Antibiotic Education cp - Prescription Opioid Use cp - Patient Portal Instructions cp - Leadership Thank You Letter cp Prescriptions: - ondansetron 8 mg Oral Tablet,disintegrating - take 1 tablet ORAL route every 12 hours; 10 tablet; Refills: 0, Product cp Selection Permitted Signatures: Dispatcher [employer] EDMS Rodri Moralez PA PA cp Leal, Jahala RN RN jl7 Eboni Centeno RN RN ko1 Margaret Salmeron RN kj2 Corrections: (The following items were deleted from the chart) 18:46 18:46 Reviewed. cp cp 03/25 19:34 03/23 16:15 This 24 yrs old Male presents to ER via Ambulatory with complaints of cp Abdominal Pain, Nausea/Vomiting/Diarrhea, Syncope. cp
--- NOTE | 2024-03-24 20:13 | ER ---
Nurse's Notes [facility] Name: Víctor Coffey Age: 24 yrs Sex: Male : 2000 Arrival Date: 03/24/2024 Time: 15:46 Bed 16 Private MD: Diagnosis: Nausea with vomiting, unspecified;Diarrhea, unspecified;Syncope Presentation: 03/24 16:03 Chief complaint: Patient states: N/V/D that began this morning. Coronavirus screen: jl7 Client denies travel out of the [place] in the last 14 days. Ebola Screen: Patient denies exposure to infectious person. Patient denies travel to an Ebola-affected area in the 21 days before illness onset. Initial Sepsis Screen: Does the patient meet any 2 criteria? No. Patient's initial sepsis screen is negative. Does the patient have a suspected source of infection? No. Patient's initial sepsis screen is negative. Risk Assessment: Do you want to hurt yourself or someone else? Patient reports no desire to harm self or others. Onset of symptoms was March 24, 2024. 16:03 Method Of Arrival: Ambulatory [facility] 16:03 Acuity: LIBRA 3 jl7 Triage Assessment: 20:18 General: Behavior is calm, cooperative. kj2 Historical: - Allergies: 16:05 Latex, Natural Rubber; jl7 16:05 peanuts; jl7 - PMHx: 16:05 Depression; hypertension (Depression); jl7 - PSHx: 16:05 Tonsillectomy; jl7 - Immunization history:: Client reports having NOT received the Covid vaccine. - Infectious Disease History:: Denies. - Social history:: Smoking status: Patient denies any tobacco usage or history of. Screenin:30 [facility] ED Fall Risk Assessment (Adult) History of falling in the last 3 months, ko1 including since admission No falls in past 3 months (0 pts) Confusion or Disorientation No (0 pts) Intoxicated or Sedated No (0 pts) Impaired Gait No (0 pts) Mobility Assist Device Used No (0 pt) Altered Elimination No (0 pt) Score/Fall Risk Level 0 - 2 = Low Risk Oriented to surroundings, Maintained a safe environment, Educated pt \T\ family on fall prevention, incl call for assistance when getting out of bed, Assessed \T\ reinforced patient's understanding of fall precautions, Hourly rounding (assess needs \T\ fall precautionary measures) done. Abuse screen: Denies threats or abuse. Denies injuries from another. Nutritional screening: No deficits noted. Tuberculosis screening: No symptoms or risk factors identified. Assessment: 17:00 General: Appears uncomfortable, obese. Pain: Complains of pain in abdomen. Neuro: No ko1 deficits noted. Cardiovascular: Rhythm is sinus tachycardia. Respiratory: No deficits noted. GI: Bowel sounds present X 4 quads. Abd is soft X 4 quads. : No deficits noted. EENT: No deficits noted. Derm: No deficits noted. Musculoskeletal: No deficits noted. 19:00 Reassessment: Patient appears in no apparent distress at this time. Patient and/or kj2 family updated on plan of care and expected duration. Pain level reassessed. Patient is alert, oriented x 3, equal unlabored respirations, skin warm/dry/pink. 20:17 Reassessment: Patient appears in no apparent distress at this time. Patient and/or kj2 family updated on plan of care and expected duration. Pain level reassessed. Patient is alert, oriented x 3, equal unlabored respirations, skin warm/dry/pink. Vital Signs: 16:03 BP 133 / 85; Pulse 126; Resp 18; Temp 98.9(O); Pulse Ox 99% on R/A; Weight 154.22 kg; jl7 Height 5 ft. 11 in. ; Pain 2/10; 17:45 BP 144 / 80; Pulse 118; Resp 19; Pulse Ox 100% ; ko1 19:00 BP 142 / 80; Pulse 98; Resp 18; Temp 98; Pulse Ox 100% ; kj2 20:16 BP 138 / 78; Pulse 90; Resp 18; Temp 98; Pulse Ox 100% ; kj2 16:03 Body Mass Index 47.42 (154.22 kg, 180.34 cm) jl7 16:03 Pain Scale: Adult jl7 ED Course: 15:49 Patient arrived in ED. im 15:55 Rodri Moralez PA is PHCP. cp 15:55 Rodri Peace MD is Attending Physician. cp 16:05 Triage completed. jl7 16:05 Arm band placed on right wrist. jl7 16:10 Eboni Centeno, CHERELLE is Primary Nurse. ko1 16:30 No provider procedures requiring assistance completed. Initial lab(s) drawn, by me, ko1 sent to lab. EKG done, by ED staff, reviewed by Rodri GUADARRAMA. Inserted saline lock: 20 gauge in left antecubital area, using aseptic technique. Blood collected. Flushed with 10 mL NS. 16:33 Lipase Sent. ko1 16:33 Basic Metabolic Panel Sent. ko1 16:33 CBC with Diff Sent. ko1 16:33 LFT's Sent. ko1 16:33 Magnesium Sent. ko1 16:33 Troponin HS Sent. ko1 16:58 XRAY Chest (1 view) In Process Unspecified. EDMS 17:30 Patient has correct armband on for positive identification. Allergy band placed. Placed ko1 in gown. Bed in low position. Call light in reach. Side rails up X 1. Provided Education on: labs, meds. Pulse ox on. NIBP on. Door closed. Noise minimized. Lights dimmed. Warm blanket given. Pillow given. Assisted to bathroom. 18:19 CT Abd/Pelvis - IV Contrast Only In Process Unspecified. EDMS 20:18 IV discontinued, intact, bleeding controlled, No redness/swelling at site. Pressure kj2 dressing applied. Administered Medications: 17:39 Drug: Ondansetron IVP 4 mg IVP once; over 2 minutes Route: IVP; Site: left antecubital; ko1 17:54 Follow up: Response: No adverse reaction ko1 17:39 Drug: Famotidine IVP 20 mg IVP once; dilute with 10 mL 0.9% NaCl; give over 2 minutes ko1 Route: IVP; Site: left antecubital; 17:54 Follow up: Response: No adverse reaction ko1 17:39 Drug: NS 0.9% IV 1000 ml IV at 1 bolus Per protocol; to be given as a bolus over 60 ko1 minutes Route: IV; Rate: 1 bolus; Site: left antecubital; 18:32 Follow up: Response: No adverse reaction; IV Status: Completed infusion; IV Intake: ko1 1000ml 18:33 Drug: NS 0.9% IV 1000 ml IV at 1000 ml once; to be given as a bolus over 60 minutes ko1 Route: IV; Rate: 1000 ml; Site: left antecubital; 20:18 Follow up: IV Status: Completed infusion; IV Intake: 1000ml kj2 18:33 Drug: Loperamide PO 4 mg PO once Route: PO; ko1 19:03 Follow up: Response: No adverse reaction ko1 Medication: 20:17 VIS not applicable for this client. kj2 Intake: 18:32 IV: 1000ml; Total: 1000ml. ko1 20:18 IV: 1000ml; Total: 2000ml. kj2 Outcome: 20:12 Discharge ordered by MD. cp 20:17 Discharged to home ambulatory, with family, kj2 20:17 Condition: stable 20:18 Discharge instructions given to patient, Instructed on discharge instructions, follow kj2 up and referral plans. medication usage, Demonstrated understanding of instructions, follow-up care, medications, Prescriptions given X 1, 20:41 Patient left the ED. kj2 Signatures: Dispatcher [employer] EDMS Rodri Moralez PA PA cp Leal, Jahala, RN RN jl7 Eboni Centeno RN RN ko1 Salina Cartagena Krystal, RN RN kj2
[2024-03-24 23:35] VITALS: O2SAT 100
[2024-03-24 23:41] VITALS: TEMP 98
[2024-03-24 23:42] VITALS: BP 138/78
--- NOTE | 2024-03-25 10:17 | EKG ---
Test Date: 2024-03-24 Test Time: 16:23:50 Stock Worker: JORGE MEASUREMENT RESULTS: Intervals: Rate: 121 SD: 150 QRSD: 86 QT: 316 QTc: 448 [place]: P: 50 SD: 150 QRS: 68 T: 19 INTERPRETIVE STATEMENTS: Sinus tachycardia Otherwise normal ECG Compared to ECG 12/28/2018 12:20:26 Sinus rhythm no longer present Sinus arrhythmia no longer present Electronically Signed On 03-25-24 10:17:14 SOFTWARE ENGINEERING MANAGER by Adama Trejo
== END 2024-03-24 20:41 | disposition home or self-care (01) ==
LOC: ER 15:46
DX: R11.2 Nausea with vomiting, unspecified (principal); R19.7 Diarrhea, unspecified; R55 Syncope and collapse
CPT/HCPCS: 36415; 71045; 74177; 80048; 80076; 83690; 83735; 84484; 85025; 93005; 96361; 96374; 96375; 99285; J2405; J7030; Q9967